=== PATIENT | male | born 1955 ===

== ENCOUNTER 2020-09-09 11:23 | Emergency (ER) | payer OTHER ==
[~2020-09-09] VITALS: Ht 180.3 cm; Wt 99.8 kg
[2020-09-09 13:44] VITALS: BP 131/69
== END 2020-09-09 15:16 | disposition home or self-care (01) ==
LOC: ER 11:23
DX: S42.201A Unspecified fracture of upper end of right humerus, initial encounter for closed fracture (principal); W19.XXXA Unspecified fall, initial encounter; Y93.89 Activity, other specified; Y92.89 Other specified places as the place of occurrence of the external cause; Y99.8 Other external cause status
CPT/HCPCS: 73030; 73080; 73090